=== PATIENT | female | born 1950 | race Caucasian/White ===

== ENCOUNTER 2024-05-31 10:57 | Outpatient (CLI) | payer MEDICARE, SELFPAY ==
[2024-06-02 22:19] LABS: Pancreatic Elastase, Fecal >800 (>200)
== END 2024-05-31 23:59 | disposition home or self-care (01) ==
PROVIDERS: Visit Provider Nurse Practitioner Family
DX: R14.0 Abdominal distension (gaseous) (principal)
CPT/HCPCS: 82656